=== PATIENT | female | born 1980 | race Caucasian/White ===

== ENCOUNTER 2016-04-23 13:59 | Outpatient (CLI) | payer OTHER | END 2016-04-23 14:00 | disposition home or self-care (01) | DX: G47.33 Obstructive sleep apnea (adult) (pediatric) (principal) ==

== ENCOUNTER 2017-08-10 08:58 | Day surgery (SDC) | payer OTHER ==
[~2017-08-10 08:58] MED LIST: LACTATED RINGERS 1,000 ML IV ONE
[2017-08-10] MEDS ORDERED: ceFAZolin 2 GM/50 ML 2 GM/50 ML BAG IV ONE (09:01)
[2017-08-10] MEDS ORDERED: BUPIVACAINE 0.5% PF 30 ML VIAL ONE (09:01)
[2017-08-10 09:21] LABS: HCG UR QUAL NEGATIVE
[2017-08-10] MEDS ORDERED: MIDAZOLAM 2 MG/2 ML VIAL IVP ONE (10:00)
[2017-08-10] MEDS ORDERED: PROPOFOL 200 MG/20 ML VIAL IVP ONE (10:00)
[2017-08-10] MEDS ORDERED: LIDOCAINE-MPF 2% 5 ML VIAL IM ONE (10:00)
[2017-08-10] MEDS ORDERED: fentaNYL 100 MCG/2 ML VIAL IVP ONE (10:00)
[2017-08-10] MEDS ORDERED: DEXAMETHASONE 4 MG/ML VIAL IVP ONE (10:00)
[2017-08-10] MEDS ORDERED: ONDANSETRON 4 MG/2 ML VIAL IVP ONE (10:00)
[2017-08-10] MEDS ORDERED: BUPIVACAINE 0.5% PF 30 ML VIAL INFIL ONE ×2 (10:45→11:15)
--- NOTE | 2017-08-10 11:30 | OPERATIVE REPORT ---
Operative Report - General Procedure Date: 08/10/17 Planned Procedure: RIGHT excisional breast biopsy Pre-Op Diagnosis: RIGHT breast mass and pain Procedure Performed: RIGHT excisional breast biopsy Post Op Diagnosis: RIGHT breast mass and pain - Procedure Note Primary Surgeon: Garret Jackson MD Anesthesia Provider: Yaneth Maciel CRNA Anesthesia Technique: General LMA, Local (30 mL 1/2% marcaine) IV Fluids (mL): 600 Estimated Blood Loss (mL): 10 Complications: None. - Other Other Information/Narrative: OPERATIVE DESCRIPTION/REPORT: After verbal and written informed consent was obtained detailing the risks of infection, bleeding requiring transfusion with its risks, nerve injury, and , and after I met with the patient confirming the surgery and the site of the surgery and after initialing the site of the surgery with a surgical marker , the patient was brought to the operative suite and placed supine on the operating table. Great care was taken to avoid pressure points to prevent pressure necrosis or nerve injury. Monitoring devices were applied along with TEDs and pneumatic compressive stockings (to prevent DVT). The patient received preoperative antibiotics for surgical prophylaxis. Yaneth Maciel sedated and anesthetized the patient for the entire procedure. The patient was prepped and draped in the usual sterile manner. With the patient draped my initials were clearly visible. A "time in" then confirmed that the patient was identified with 3 identifiers (name, date and medical record number), the history and physical was in the chart, the signed consent confirming the procedure was in the chart, the patient was in the correct position, the aforementioned prophylactic measures were in place or given, we had the correct personnel and equipment to complete the procedure and that anesthesia, surgery and nursing were given an opportunity to express any concerns. With the agreement of everyone in the room, we proceeded with the operation. The skin overlying the mass was incised in a curvilinear fashion. Dissection down to the mass was performed using a combination of Metzenbaum scissors and Bovie electrocautery. Every attempt was made to get approximately 1 cm of normal tissue around the lesion. The specimen was marked with a long stitch laterally, a short stitch superiorly, and a double stitch deep. Meticulous hemostasis was obtained using Bovie electrocautery. The subcutaneous tissues were approximated using interrupted 2-0 Vicryl. The skin incision was approximated with 4-0 Monocryl in a subcuticular fashion. The skin and breast cavity were injected with 30 mL 1/2% marcaine. The skin was prepped with benzoin and steristrips were applied. A dressing was then applied. At this point a time out was performed that confirmed that all the counts were correct, the procedure that was performed, the blood loss, the IV fluids administered, and the patients condition. Having tolerated the procedure well, the patient was subsequently taken to recovery room in good and stable condition.
[2017-08-10] MEDS ORDERED: oxyCOD/ACETAMIN 5 MG/325 MG TABLET PO ONE (12:34)
[2017-08-10 12:42] VITALS: BP 113/70
== END 2017-08-10 08:59 | disposition home or self-care (01) ==
LOC: SDS 08:58
PROVIDERS: ATTEND Surgery
PROC: 0HBT0ZZ Excision of Right Breast, Open Approach (ICD-10-PCS; principal; 2017-08-10 10:00)
DX: N63.10 Unspecified lump in the right breast, unspecified quadrant (principal); N64.4 Mastodynia; Z87.891 Personal history of nicotine dependence; G47.30 Sleep apnea, unspecified
CPT/HCPCS: 19120; 81025; A9270; J0690; J7120; 88304

== ENCOUNTER 2017-09-13 08:40 | Outpatient (CLI) | payer OTHER ==
--- NOTE | 2017-09-13 11:55 | Ultrasound Report ---
Procedure Date: 09/13/2017 Accession Number: [id number] / [id number] Procedure: US - Biopsy Breast Core CPT Code: FULL RESULT: EXAM: Biopsy Breast Core DATE: 09/13/2017 10:36 AM CLINICAL HISTORY: LT BREAST MASS Informed consent was obtained. Using standard aseptic technique, both 1% buffered lidocaine and Sensorcaine were injected in the left breast for local anesthesia. A small gely was made in the skin with a #11 blade. A 12-gauge Celero vacuum-assisted device was used to obtain 3 specimens A Celero marker was placed into the biopsy cavity under ultrasound guidance. The patient will return for a post-marker diagnostic mammogram at a later date. The wound was dressed and ice applied. The patient was observed for approximately 15 minutes, that was discharged from diagnostic imaging in good condition following instructions on wound care and obtaining biopsy results. The tissue was sent for histologic analysis. IMPRESSION: Ultrasound-guided biopsy of the left breast. An addendum will be made to this report when pathology is reviewed to establish concordance.
[2017-09-13] MEDS ORDERED: BUFFERED LIDOCAINE 10 ML SYRINGE IU ONE (16:29)
[2017-09-13] MEDS ORDERED: BUPIVACAINE 0.5%-EPI 1:200000 PF 10 ML VIAL SUBQ ONE (16:29)
== END 2017-09-13 08:41 | disposition home or self-care (01) ==
LOC: DI 08:40
PROVIDERS: ATTEND Surgery
DX: N60.32 Fibrosclerosis of left breast (principal)
CPT/HCPCS: 19083

== ENCOUNTER 2017-09-16 10:45 | Outpatient (CLI) | payer OTHER ==
--- NOTE | 2017-09-16 13:23 | Mammography Report ---
Procedure Date: 09/16/2017 Accession Number: [id number] / [id number] Procedure: ABIMBOLA - Diagnostic Dig LT CPT Code: FULL RESULT: EXAM: Diagnostic Dig LT DATE: 09/16/2017 10:57 AM CLINICAL HISTORY: Status post left breast biopsy, check marker position TECHNIQUE: Left CC and true lateral COMPARISON: Outside mammogram dated 07/08/2017 FINDINGS: Left breast again demonstrates scattered fibroglandular densities. Biopsy marker is seen in the left lower inner breast, approximately 1 cm posterior to the nodule. IMPRESSION: Post biopsy marker check. RECOMMENDATION: Await pathology report. STANDARD QUALIFYING STATEMENTS: 1. This examination was reviewed with the aid of Computer-Aided Detection (CAD). 2. A negative or benign imaging report should not delay biopsy if clinically suspicious findings are present. Consider surgical consultation if warrented. More than 5% of cancers are not identified by imaging. 3. Dense breasts may obscure an underlying neoplasm.
== END 2017-09-16 10:46 | disposition home or self-care (01) ==
LOC: DI 10:45
PROVIDERS: ATTEND Surgery
DX: N63.20 Unspecified lump in the left breast, unspecified quadrant (principal); R92.8 Other abnormal and inconclusive findings on diagnostic imaging of breast

== ENCOUNTER 2018-06-27 08:59 | Outpatient (CLI) | payer OTHER ==
--- NOTE | 2018-06-27 12:59 | Mammography Report ---
Reason: F/U LEFT BREAST MASS Procedure Date: 06/27/2018 Accession Number: [id number] / [id number] Procedure: ABIMBOLA - Diagnostic Dig Bilat CPT Code: FULL RESULT: EXAM: Diagnostic Dig Bilat DATE: 06/27/2018 9:41 AM CLINICAL HISTORY: Diagnostic examination. Short-term interval follow-up status post biopsy of benign left breast mass. TECHNIQUE: (B) - Bilateral CC and MLO views were obtained. Left ML views were obtained. COMPARISON: 09/16/2017 and 07/08/2017. PARENCHYMAL PATTERN: (A) - The breast(s) demonstrate(s) scattered fibroglandular densities. FINDINGS: Postbiopsy changes including a marker are again seen in the left breast. There are no suspicious masses, calcifications, or areas of distortion. IMPRESSION: Benign findings. BI-RADS category 2. RECOMMENDATION: (ANNUAL) - Recommend routine annual screening mammography. BI-RADS CATEGORY: (2) - Benign Findings. STANDARD QUALIFYING STATEMENTS: 1. This examination was not reviewed with the aid of Computer-Aided Detection (CAD). 2. A negative or benign imaging report should not preclude biopsy if clinically suspicious findings are present. 3. Dense breasts may obscure an underlying neoplasm. 4. This examination was reviewed with the aid of 3D breast imaging (tomosynthesis).
== END 2018-06-27 09:00 | disposition home or self-care (01) ==
LOC: DI 08:59
PROVIDERS: ATTEND Internal Medicine Gastroenterology
DX: R92.8 Other abnormal and inconclusive findings on diagnostic imaging of breast (principal)
CPT/HCPCS: 77066

== ENCOUNTER 2019-09-07 14:21 | Outpatient (CLI) | payer OTHER ==
--- NOTE | 2019-09-08 12:50 | Ultrasound Report ---
LIMITED ULTRASOUND OF LEFT BREAST: 09/07/2019 CLINICAL: Patient returns for additional imaging over a suspected mass in the left breast. Comparison is made to exam dated: 09/07/2019 mammogram - [facility]. Real-time ultrasound of the left breast was performed. Stone scale images of the real-time examinati on were reviewed. No significant abnormalities were seen sonographically in the left breast. A 6mm x 3 mm x 5 mm area was annotated on the images at the 8:00 position, 4 cm from the nipple and it is felt to represent a focus of glandular breast tissue. No suspicious mass is identified. IMPRESSION: SUSPICIOUS OF MALIGNANCY There is no abnormality seen in the left breast to correspond with the mammography finding in the inn er aspect, however, stereotactic biopsy is recommended for suspicious asymmetry in the medial left br east seen on today's mammographic evaluation. Findings and recommendations were discussed with the patient by Dr. Pickett during today's visit. This exam was interpreted at Station ID: [id number]. Electronically Signed By: Rubens Preston M.D. aty/:09/07/2019 18:57:11 Ultrasound BI-RADS: 4 Suspicious for malignancy BI-RADS CATEGORY: (4) - 4 None [id number] Immediate follow-up LATERALITY: ()
--- NOTE | 2019-09-08 12:50 | Mammography Report ---
BILATERAL DIGITAL DIAGNOSTIC MAMMOGRAM 3D/2D: 09/08/2019 CLINICAL: Diffuse right breast pain. Comparison is made to exams dated: 09/07/2019 mammogram, 06/27/2018 mammogram, 09/26/2017 mammogram, an d 07/08/2017 mammogram - [facility]. The tissue of both breasts is heterogeneously dense. This may lower the sensitivity of mammography. There is a developing 0.7 cm irregular equal density asymmetry in the left breast anterior depth medi al region seen on the craniocaudal view only. This is more prominent. There is possible architectur al distortion associated with the asymmetry. No other significant masses, calcifications, or other findings are seen in either breast. A biopsy m arker is noted posterior to this asymmetry. IMPRESSION: INCOMPLETE: NEEDS ADDITIONAL IMAGING EVALUATION The developing 0.7 cm irregular equal density asymmetry in the left breast is indeterminate. An ultrasound is recommended for further evaluation and is scheduled to immediately follow this study . There is no abnormality seen in the right breast to correspond with the area of clinical concern and pain. Further evaluation with sonogram is recommended which is scheduled to immediately follow this e xamination. This exam was interpreted at Station ID: [id number]. NOTE: For mammograms, a report in lay terms will be sent to the patient. Approximately 15% of breast malignancies will not be visualized mammographically. In the management of a palpable breast mass, a negative mammogram must not discourage biopsy of a clinically suspicious lesion. Electronically Signed By: Rubens Preston M.D. aty/:09/08/2019 12:12:01 ACR BI-RADS Category 0: Incomplete 3340F PARENCHYMAL PATTERN: (D) - The breast(s) demonstrate(s) heterogeneously dense fibroglandular nikos garcia. BI-RADS CATEGORY: (0) - 0 Ultrasound [id number] Immediate follow-up LATERALITY: (B)
--- NOTE | 2019-09-08 12:50 | Ultrasound Report ---
LIMITED ULTRASOUND OF RIGHT BREAST: 09/07/2019 CLINICAL: Focal right breast pain. Comparison is made to exam dated: 09/07/2019 mammogram - [facility]. Real-time ultrasound of the right breast was performed. Stone scale images of the real-time examinati on were reviewed. No significant abnormalities were seen sonographically in the right breast. IMPRESSION: BENIGN There is no sonographic evidence of malignancy. There is no abnormality seen in the right breast to correspond with the area of clinical concern and pain in the upper outer quadrant, however, recommend clinical follow up for persistent or worsening s ymptoms or development of any clinically suspicious findings. A 1 year screening mammogram is recommended. Additionally, a stereotactic biopsy of the left breast is recommended for suspicious asymmetry seen i n the medial left breast described on separate report. This exam was interpreted at Station ID: [id number]. Electronically Signed By: Rubens Perston M.D. aty/:09/07/2019 18:26:45 Ultrasound BI-RADS: 2 Benign BI-RADS CATEGORY: (2) - 2 RECOMMENDATION: (ANNUAL) - Recommend routine annual screening mammography. [id number] 1 year screening LATERALITY: (B)
== END 2019-09-07 14:22 | disposition home or self-care (01) ==
LOC: DI 14:21
PROVIDERS: ATTEND Surgery
DX: R92.8 Other abnormal and inconclusive findings on diagnostic imaging of breast (principal)
CPT/HCPCS: 76642; 77066

== ENCOUNTER 2019-09-19 13:37 | Outpatient (CLI) | payer OTHER ==
[~2019-09-19 13:37] MED LIST changes: +BUFFERED LIDOCAINE 10 ML SYRINGE ONE; -LACTATED RINGERS 1,000 ML IV ONE
[2019-09-19] MEDS ORDERED: BUFFERED LIDOCAINE 10 ML SYRINGE IU ONE (16:11)
--- NOTE | 2019-09-21 08:54 | Mammography Report ---
DIGITAL TOMOGRAPHIC MAMMOGRAPHY GUIDED STEREOTACTIC GUIDED BIOPSY LEFT BREAST WITH MARKING DEVICE INS ERTED AND POST MAMMOGRAPHIC IMAGIN09/19/2019 CLINICAL: Left breast focal asymmetry. Correlation is made to exams dated: 09/08/2019 mammogram, 09/07/2019 mammogram, 09/26/2017 mammogram, a nd 06/27/2018 mammogram - [facility] with [facility]. A stereotactic guided biopsy was performed for the 0.7 cm irregular shaped asymmetry located in the l eft breast at 9 o'clock anterior depth. This was described on the previous mammography report. The skin was prepped in the usual manner. Local anesthetic was administered to the access site. A skin gely was made in the breast. The abnormality was approached from the caudocranial aspect using an up right digital tomographic mammography unit. A 12 gauge biopsy needle was placed adjacent to the abno rmality under computer guidance and confirmatory stereotactic mammography images were obtained to doc ument needle placement. Once the needle was documented to be in the correct location, six specimens were obtained using Siemens upright tomosynthesis biopsy unit. A clip was inserted into the biopsy c avity. A sterile dressing was applied to the access site. Post procedure mammographic imaging demon strates the location device at the targeted area. The specimens were sent to the laboratory for path ological analysis. IMPRESSION: STEREOTACTIC GUIDED BIOPSY BENIGN Stereotactic guided biopsy of the 0.7 cm asymmetry in the left breast at 9 o'clock anterior depth was successful. Pathology indicates fatty breast tissue with variable dense fibrosis and inactive lobul es. Pathology results are concordant with imaging findings. A follow-up left mammogram in 6 months is recommended to demonstrate stability. This exam was interpreted at Station ID: [id number]. Rubens Preston M.D. aty/:09/20/2019 17:22:05 BI-RADS CATEGORY: () - Mammogram [id number] 6 month follow-up LATERALITY: (L)
== END 2019-09-19 13:38 | disposition home or self-care (01) ==
LOC: DI 13:37
PROVIDERS: ATTEND Surgery
DX: N60.32 Fibrosclerosis of left breast (principal); R92.0 Mammographic microcalcification found on diagnostic imaging of breast
CPT/HCPCS: 19081

== ENCOUNTER 2020-08-21 16:37 | Emergency (ER) | payer OTHER ==
[2020-08-21 16:59] VITALS: BP 126/74
--- OUTSIDE RECORDS SUMMARY | 2020-08-21 17:05 | EXTERNAL MEDICAL SUMMARY RPT | Continuity of Care Document ---
:1980 Demographics Phone Unavailable Preferred Language Unknown Marital Status Unknown [employer] Affiliation Unknown Race Unknown Ethnic Group Unknown Author Organization [facility] Address [address] [place] [address] Phone Allergies Encounters Medications Problems Results
--- NOTE | 2020-08-21 17:38 | XRAY Report ---
PROCEDURE: Finger(s) LT INDICATIONS: box vs finger TECHNIQUE: AP hand, 2 views of the left fifth finger(s) acquired. COMPARISON: None FINDINGS: Bones: No fractures or dislocations. No suspicious bony lesions. Soft tissues: No suspicious soft tissue calcifications. IMPRESSION: No acute finding. Reviewed by: Hever Caldwell MD on 08/21/2020 5:37 PM PDT Approved by: Hever Caldwell MD on 08/21/2020 5:37 PM PDT Station ID: [id number]
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
== END 2020-08-21 18:26 | disposition home or self-care (01) ==
LOC: ED 16:37
DX: S63.617A Unspecified sprain of left little finger, initial encounter (principal); X50.1XXA Overexertion from prolonged static or awkward postures, initial encounter; Y93.89 Activity, other specified
CPT/HCPCS: 99282; 99283